=== PATIENT | male | born 1980 | race Two or more races ===

== ENCOUNTER 2024-05-10 10:10 | Day surgery (SDC) | payer BC, SELFPAY ==
[2024-05-10] VITALS (7 sets, daily range): BP systolic 150–170; BP diastolic 89–100; PULSE 65–77; RESP 15–20; TEMP 36.6–37.1; O2SAT 96–100; BMI 29.7
--- NOTE | 2024-05-10 10:58 | XR_ITS ---
Examination: CT abdomen with intravenous contrast CT pelvis with intravenous contrast 2-D coronal reconstructions 2-D sagittal reconstructions Date and time of exam:May 10, 2024 1220 hrs. Indications: Onset right lower abdominal pain today. CTDI: vol (mGy) 9.48 DLP: (mGycm) 573 Technique: Multiple axial sections of the abdomen and pelvis have been obtained. 64 slice high-resolution scanner used. 3 mm axial sections have been obtained, post intravenous injection 60 cc [id number] 2-D sagittal, coronal reconstructions obtained. Low dose protocols were performed. One or more of the following dose reduction techniques were used; automated exposure control, adjustment of the mA and/or KV according to patient size, use of iterative reconstruction technique. Findings: Small liver cysts Fatty infiltration throughout the liver Spleen not enlarged No pancreatic or adrenal mass No gallstones No hydronephrosis Fluid-filled inflamed appendix below the cecum No pelvic abscess Impression: Acute appendicitis Negative for pelvic abscess
--- NOTE | 2024-05-10 11:00 | PD.EDRME ---
Rapid Medical Screening Exam RME Arrival date/time: 05/10/24 10:10 44-year-old male presents emergency department complaints of right lower quadrant abdominal pain associated with nausea vomiting and fever x 1 day. I have greeted and performed a focused initial assessment of this patient. Initial appropriate labs ordered at this time. A comprehensive ED assessment and evaluation of the patient and analysis of all test and completion of medical decision making process will be conducted by additional ED provider. Chief Complaint: Abdominal Pain Time Seen by Provider: 05/10/24 10:55 Vital signs: Vital Signs Temperature 98.7 F 05/10/24 10:19 Pulse Rate 65 05/10/24 10:19 Respiratory Rate 18 05/10/24 10:19 Blood Pressure 153/92 H 05/10/24 10:19 Pulse Oximetry (%) 98 05/10/24 10:19 Oxygen Delivery Method Room Air 05/10/24 10:19
[2024-05-10 11:44] LABS: Collection Type, Urine Clean Catch; Squamous Epithelial Cell,Urine 0 /hpf (0-5); WBC,Urine 0 /hpf (0-5)
[2024-05-10 11:49] LABS: Basophils % (Auto) 0 % (0-2.5); Eosinophils % (Auto) 0 % (0-10); Hematocrit 46.4 % (41.0-53.0); Hemoglobin 15.4 g/dL (13.5-16.0); Immature Granulocytes % (Auto) 0 % (0-0); Immature Granulocytes Auto 0.05 Thou/mm3 (0.00-0.00); Lymphocytes % (Auto) 6 % (10-50); Mean Corpuscular HGB Conc 33.2 g/dl (31.0-37.0); Mean Corpuscular Hemoglobin 29.1 pg (25.0-35.0); Mean Corpuscular Volume 88 fL (80-100); Monocytes # (Auto) 0.7 Thou/mm3 (0.0-0.8); Monocytes % (Auto) 4 % (0-12); Neutrophils # (Auto) 16.1 Thou/mm3 (1.8-7.7); Neutrophils % (Auto) 90 % (37-80); Nucleated Red Blood Cell % 0 /100 WBC (0); Platelet Count 252 Thou/mm3 (140-440); RDW Standard Deviation 42.2 fL (35.1-43.9); White Blood Count 17.9 Thou/mm3 (3.8-10.6)
[2024-05-10 12:03] LABS: Amorphous Crystals,Urine Present (Absent); Bilirubin,Urine Negative (Negative); Blood,Urine 2+ (Negative); Clarity,Urine Turbid (Clear/Hazy); Color,Urine Yellow (Lt Yel-Yel); Glucose, Urine Negative (Negative); Ketones,Urine 1+ (Negative); Leukocyte Esterase,Urine Negative (Negative); Nitrite,Urine Negative (Negative); PH,Urine 7.5 (5.0-7.0); Protein,Urine 1+ (Neg - Trace); RBC,Urine 4 /hpf (0-3); Specific Gravity,Urine 1.029 (1.001-1.035); Urobilinogen,Urine Negative mg/dL (0.0-1.0)
[2024-05-10 12:05] LABS: Alanine Aminotransferase 60 U/L (10-49); Albumin/Globulin Ratio 1.7 (1.2-2.2); Alkaline Phosphatase 113 U/L (46-116); Anion Gap 8 (7-16); Aspartate Amino Transferase 32 U/L (0-34); BUN/Creatinine Ratio 9 Ratio (12-20); Bilirubin,Total 1.2 mg/dL (0.3-1.2); Blood Urea Nitrogen 12 mg/dL (9-23); Calcium 10.4 mg/dL (8.3-10.6); Calcium (Corrected) 10.4 mg/dL (8.5-10.1); Carbon Dioxide 26.5 mMol/L (20.0-31.0); Chloride 103 mMol/L (98-107); Creatinine (Component) 1.3 mg/dL (0.6-1.3); Estimated Creatinine Clearance 82.6 mL/min (>60); Globulin 2.9 gm/dL (2.3-3.5); Glucose 129 mg/dL (74-106); Lipase 38 U/L (12-53); Osmolality,Calculated 275 (275-295); Potassium 4.3 mMol/L (3.4-5.1); Sodium 137 mMol/L (136-145); Total Protein 7.9 gm/dL (5.7-8.2); eGFR > 60 See Note
[2024-05-10] MEDS: ONDANSETRON INJ 2 MG/ML INJ 2 ML 4 MG IV (13:10)
[2024-05-10] MEDS: MORPHINE SULF INJ 10 MG/ML VIAL 5 MG IVP (13:12)
--- NOTE | 2024-05-10 13:12 | PRELIM_ITS ---
CT scan of the abdomen and pelvis with intravenous contrast (axial sections with sagittal and coronal reformats) May 10, 2024 1222 hours Clinical History: Abd right lower quad. Comparison: No prior study is available for comparison. Findings: The appendix is thickened with appendicoliths, measuring 1 cm (coronal images 57/146) with mild wall enhancement and periappendiceal fat stranding. There is no free fluid or free air. No evidence of bowel obstruction. A moderate amount of fecal material is present in the colon. There is a small hypodensity in the liver too small to characterize.The gallbladder, spleen, pancreas, adrenals are unremarkable. There is a non obstructing calculus in the right kidney. There is a small hypodensity in the left kidney too small to characterize. The urinary bladder is normal. The osseous structures are unremarkable. The lung bases are clear. Impression: Acute appendicitis with appendicoliths without perforation or abscess. Other findings as described above. Discussion Details: Results verbally communicated to : Franny Murphy NP at 12:54 PM 05/10/2024 Report Electronically Signed By: Jamie Justice 05/10/2024 1:11:41 PM [EST]
[2024-05-10] MEDS: SODIUM CHLORIDE 0.9% 1000 ML 1,000 ML 999 ML IV (13:23)
[2024-05-10] MEDS: ceFAZolin/D5W 1 GM IVPB 1 GM/50 ML BAG IV (13:29)
--- NOTE | 2024-05-10 14:01 | ESHP_ITS ---
HPI Date of Admission 05/10/2024 Chief Complaint Chief Complaint: Right lower quadrant abdominal pain with nausea and vomiting HPI 44-year-old male without significant past medical history presented to the emergency department with acute onset of abdominal pain. His pain started 2:00 in the morning and woke him up. His pain has been in right lower quadrant. The pain was initially intermittent, then it became persistent and progressively worse. He has had nausea and vomiting, but denies fever, chills, diarrhea, constipation or dysuria. He denies having similar symptoms in the past with no recent history of trauma. Review of Systems Constitutional Constitutional: Denies chills and Denies fever(s) Cardiovascular Cardiovascular: Denies chest pain Respiratory Respiratory: Denies cough Gastrointestinal Gastrointestinal: Reports abdominal pain, Reports nausea and Reports vomiting Genitourinary Genitourinary: Denies difficulty urinating Hematologic/Lymphatic Hematologic/Lymphatic: Denies easy bleeding and Denies easy bruising Past Medical History Surgical History OTHER SURGICAL HX: Tonsillectomy Social History SMOKING STATUS: Never smoker SUBSTANCE USE: does not use ALCOHOL: Current Meds Home Medications and Allergies Allergies Allergy/AdvReac Type Severity Reaction Status Date / Time No Known Allergies Allergy Verified 05/10/24 10:13 Exam Vital Signs Temp Pulse Resp BP Pulse Ox O2 Del Method 98.7 F 65 18 153/92 H 98 Room Air 05/10/24 10:19 05/10/24 10:19 05/10/24 10:19 05/10/24 10:19 05/10/24 10:19 05/10/24 10:19 Constitutional Constitutional: no acute distress Routine Respiratory Exam Respiratory: Present CTA bilaterally Routine Cardiovascular Exam Cardiovascular: Present RRR Routine Abdominal Exam Abdominal: Present soft, normoactive bowel sounds and tenderness (Right lower qu adrant tenderness to palpation with guarding, no rebound tenderness or peritonitis at this time); Absent distended Results Results: Laboratory Laboratory results: results reviewed Results: Imaging Imaging narrative: CT scan of abdomen pelvis images reviewed, radiologist interpretation noted Assessment & Plan Problem List (1) Unspecified acute appendicitis: Qualifiers: Acute appendicitis type: unspecified acute appendicitis type Qualified Code(s): K35.80 - Unspecified acute appendicitis Status: Acute Plan Will take patient to the operating room for laparoscopic possible open appendectomy. Risks include but not limited to infection, bleeding, injury to bowel, bladder, surround neurovascular structures, abdominal sepsis and or abdominal abscess, need for further procedure and or operation discussed with the patient. Benefits and alternatives explained to him, all his questions answered, he agreed and consented to proceed with the operation. Quality Measures Quality Measures none
--- NOTE | 2024-05-10 14:26 | PD.EDABDPN ---
ED Abdominal Pain RME/HPI General Chief Complaint: Abdominal Pain Stated complaint: Abdominal, n/v/d, fever x since last pm Time seen by provider: 05/10/24 10:55 Arrival date/time: 05/10/24 10:10 A 44-year-old male with no significant past medical history presents with a one-day history of right lower quadrant abdominal pain. The pain is associated with nausea, vomiting, and subjective fever. The patient reports taking [id number] medication with mild relief of symptoms. Limitations: no limitations RME / HPI RME / HPI narrative: 05/10/24 10:10 44-year-old male presents emergency department complaints of right lower quadrant abdominal pain associated with nausea vomiting and fever x 1 day. I have greeted and performed a focused initial assessment of this patient. Initial appropriate labs ordered at this time. A comprehensive ED assessment and evaluation of the patient and analysis of all test and completion of medical decision making process will be conducted by additional ED provider. Related Data Allergies Allergy/AdvReac Type Severity Reaction Status Date / Time No Known Allergies Allergy Verified 05/10/24 10:13 Review of Systems Review of Systems Systems Reviewed: All systems reviewed, normal except as documented Narrative Review of Systems: Gen:+ fever, no chills, no weight loss EYES: No discharge, no visual changes, no pain HEENT: No ear pain, no congestion, no sore throat PULM: No shortness of breath, no cough, no congestion CV: No chest pain, no dyspnea on exertion, no palpitations GI: No nausea, no vomiting, no diarrhea, + pain, no constipation : No frequency, no urgency, no dysuria Musc/skel: No joint pain, no back pain Skin: No rash Psyc: No hallucinations, no depression Heme/Lymph: No easy bleeding or bruising tendencies Neuro: No weakness, no headache ED Exam Narrative Physical exam: 44-year-old male awake and alert appears to be in pain General Limitations: Present no limitations General appearance: Present alert Head Head exam: Present atraumatic Eye Eye exam: Present normal appearance, PERRL and EOMI ENT ENT exam: Present normal exam, normal oropharynx and mucous membranes moist Neck Neck exam: Present normal inspection, full ROM and trachea midline Chest Chest inspection: Present normal inspection and symmetric chest wall rise Respiratory Respiratory exam: Present normal lung sounds bilaterally Cardiovascular Cardiovascular exam: Present regular rate, normal rhythm and normal heart sounds Abdominal Exam Abdominal exam: Present soft, tenderness, guarding and normal bowel sounds; Absent distention, rebound or rigidity Abdominal tenderness: Present RLQ and moderate Extremities Exam Extremities exam: Present normal inspection and full ROM Back Exam Back exam: Present normal inspection and full ROM Neurological Exam Neurological exam: Present alert, oriented X3 and CN II-XII intact Psychiatric Psychiatric exam: Present normal affect and normal mood Skin Skin exam: Present warm, dry, intact and normal color Course Quality Measures none Orders Category Date Time Status Patient Condition Routine Admission 05/10/24 13:[address] in Surgical Day Care Routine Admission 05/10/24 13:53 Active Activity as Tolerated Routine Care 05/10/24 13:53 Ordered Bedside COVID-19 Antigen Test NOW Care 05/10/24 10:58 Active Bedside Influenza A&B Antigen Test NOW Care 05/10/24 10:[address] Screening NOW Care 05/10/24 10:58 Active Consent [Obtain Written Consent For:] .NOW Care 05/10/24 13:52 Active Insert IV NOW Care 05/10/24 12:58 Completed Intake and Output QSHIFT Care 05/10/24 14:00 Ordered NPO NOW Care 05/10/24 13:53 Active Notify provider NEEDED Care 05/10/24 13:52 Active Diet NPO (NOW) Diet 05/10/24 13:[address] abdomen pelvis w con Stat Exams 05/10/24 10:58 Taken CBC Stat Lab 05/10/24 11:28 Completed Comprehensive Metabolic Panel Stat Lab 05/10/24 11:28 Completed Lipase Stat Lab 05/10/24 11:28 Completed Urinalysis Stat Lab 05/10/24 11:01 Completed Acetaminophen Tab [Tylenol Tab] Med 05/10/24 13:52 Active 650 mg PO Q6H PRN Cefoxitin [Mefoxin] 2 gm Med 05/10/24 13:52 Discontinued SODIUM CHLORIDE 0.9% (Popper) [Ns 0.9% (P)] 50 ml IV X1 KCL 20 mEq/L in D5-1/2NS Med 05/10/24 14:00 Active 20 meq in 1,000 ml IV 125 mls/hr Morphine Inj Med 05/10/24 12:58 Discontinued 5 mg IVP X1 ONE Ondansetron Inj [Zofran Inj] Med 05/10/24 13:52 Active 4 mg IV Q6H PRN Ondansetron Inj [Zofran Inj] Med 05/10/24 12:58 Discontinued 4 mg IV X1 ONE Sodium Chloride 0.9% 1000 ml [Ns] 1,000 ml Med 05/10/24 12:58 Discontinued IV 999 mls/hr ceFAZolin/D5W 1 GM IVPB [Ancef Ivpb] Med 05/10/24 13:22 Discontinued 1 gm in 50 ml IV X1 Code Status Routine Oth 05/10/24 13:52 Ordered Vital Signs Vital signs: Vital Signs Temperature 98.7 F 05/10/24 10:19 Pulse Rate 65 05/10/24 10:19 Respiratory Rate 18 05/10/24 10:19 Blood Pressure 153/92 H 05/10/24 10:19 Pulse Oximetry (%) 98 05/10/24 10:19 Oxygen Delivery Method Room Air 05/10/24 10:19 Abdominal Pain MDM MDM Narrative MDM Narrative:: CT abdomen/pelvis is positive for acute, non-perforated appendicitis. The on-call general surgeon, Dr. Castellanos, will be contacted for admission and surgical evaluation. The patient will be started on IV fluids, pain management, and preoperative antibiotics in preparation for surgery. Patient data External records reviewed:: [facility] previous records Clinical information provided by:: patient Social determinants that could affect healthcare access:: none Patient has the following chronic illnesses:: None How is presenting disease/condition affected by chronic disease/condition?: no chronic disease Evaluation data The following diagnostics were reviewed and interpreted by me:: lab results and radiology exam(s) Lab and/or radiology exams considered but not ordered:: Yes Interpretation Summary: Acute appendicitis on CT Ordering Physician: Date of Service: Procedure(s): Accession Number(s): cc: ~ CT scan of the abdomen and pelvis with intravenous contrast (axial sections with sagittal and coronal reformats) May 10, 2024 1222 hours Clinical History: Abd right lower quad. Comparison: No prior study is available for comparison. Findings: The appendix is thickened with appendicoliths, measuring 1 cm (coronal images 57/146) with mild wall enhancement and periappendiceal fat stranding. There is no free fluid or free air. No evidence of bowel obstruction. A moderate amount of fecal material is present in the colon. There is a small hypodensity in the liver too small to characterize.The gallbladder, spleen, pancreas, adrenals are unremarkable. There is a non obstructing calculus in the right kidney. There is a small hypodensity in the left kidney too small to characterize. The urinary bladder is normal. The osseous structures are unremarkable. The lung bases are clear. Impression: Acute appendicitis with appendicoliths without perforation or abscess. Other findings as described above. Discussion Details: Results verbally communicated to : Franny Murphy REHABILITATION WORKER at 12:54 PM 05/10/2024 Report Electronically Signed By: Jamie Justice 05/10/2024 1:11:41 PM [EST] Medications / Prescriptions Medications or Prescriptions considered but not ordered:: no Medication administrations:: Medication Administration History Acetaminophen (Acetaminophen 325 Mg Tablet) 650 mg PO Q6H PRN PRN Reason: Fever >101.5 Stop: 06/09/24 13:51 Potassium Chloride/Dextrose/Sod Cl (Kcl 20 Meq/L In D5-1/2ns) 20 meq in 1,000 mls @ 125 mls/hr IV .Q8H DEMARCO Stop: 06/09/24 13:59 Ondansetron HCl (Ondansetron Inj 2 Mg/Ml Inj 2 Ml) 4 mg IV Q6H PRN PRN Reason: NAUSEA OR VOMITING Stop: 06/09/24 13:51 Discontinued Medications Sodium Chloride (Ns) 1,000 mls @ 999 mls/hr IV .Q1H1M ONE Stop: 05/10/24 13:58 Last Admin: 05/10/24 13:23 Dose: 999 mls/hr Documented By: PRIYA Cefazolin Sodium/Dextrose (Ancef Ivpb) 1 gm in 50 mls @ 100 mls/hr IV X1 ONE Stop: 05/10/24 13:51 Last Infusion: 05/10/24 13:56 Dose: Infused Documented By: Admin: 05/10/24 13:29 Dose: 100 mls/hr Documented By: PRIYA Cefoxitin Sodium 2 gm/ Sodium (Chloride) 50 mls @ 100 mls/hr IV X1 ONE Stop: 05/10/24 14:21 Morphine Sulfate (Morphine Sulf Inj 10 Mg/Ml Vial) 5 mg IVP X1 ONE Stop: 05/10/24 12:59 Last Admin: 05/10/24 13:12 Dose: 5 mg Documented By: PRIYA Ondansetron HCl (Ondansetron Inj 2 Mg/Ml Inj 2 Ml) 4 mg IV X1 ONE; Protocol Stop: 05/10/24 12:59 Last Admin: 05/10/24 13:10 Dose: 4 mg Documented By: PRIYA All medications administered and effective Consultations Consultation(s) initiated? (list below): Yes Consultation #1 (Physician, Specialty, Details): Dr. Castellanos's general surgeon Diagnosis Differential diagnosis abdominal pain: abdominal pain, acute appendicitis, calculus of kidney, constipation, gastroenteritis, pancreatitis and small bowel obstruction Most likely diagnosis given after review of the tests above:: Acute appendicitis Admission Indicated Admission indicated?: indicated Admission Request Was there a request for admission?: Yes Admission Attestation Admission request attestation: Discussed case with [] from Hospitalist service regarding admission. Discussed patients ED course, exam findings, labs, and radiology results. The Hospitalist [agrees,declines] to accept the patient for admission. 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 Stafnord
[2024-05-10] MEDS: CEFOXITIN 2 GM in SODIUM CHLORIDE 0.9% (Popper) 50 ML IV (14:36)
--- NOTE | 2024-05-10 15:02 | ESOP_ITS ---
Date of Procedure 05/10/24 Pre Op Diagnosis Acute appendicitis Post Op Diagnosis Acute appendicitis Procedure Laparoscopic appendectomy Findings Inflamed, dilated and hyperemic appendix without perforation Procedure Description Patient was brought into the operating room in supine position. After administration of general endotracheal anesthesia, abdomen was prepped and draped in standard surgical manner. A Veress needle was inserted through the umbilicus and pneumoperitoneum was obtained up to 15 mmHg. The Veress needle was removed and a 5 mm umbilical incision was made. A 5 mm trocar was placed and laparoscopic camera was inserted. Under direct visualization a laparoscopic camera a 5 mm trocar placed in suprapubic region and a 10 mm trocar placed in left lower quadrant. The abdomen was inspected, the cecum was identified and followed until the appendix was identified. The appendix was noted to be inflamed, dilated and hyperemic without perforation. A window was created between the appendix and mesoappendix and the appendix was divided near the appendix and cecal junction with blue Endo LARRY stapling device. The mes oappendix was divided with cuello Endo LARRY stapling device. The appendix was placed inside an Endo Catch and removed from the abdomen utilizing left lower quadrant trocar site. Abdomen and pelvis copiously and thoroughly washed and irrigated, all the fluids were suctioned and the suctioned fluid returned clear. Hemostasis was adequate and satisfactory, staple lines were intact without bleeding or any leakage. Left lower quadrant trocar sites fascial defect was closed with 0 Vicryl using Endo closure device. Instruments and trocars removed, pneumoperitoneum was evacuated and the incisions closed with 4-0 Monocryl subcuticular fashion. Instruments, needles and sponge counts were reported to be correct ??2. Patient tolerated the procedure well, was extubated, breathing spontaneously and without difficulty and was transferred to postanesthesia care in stable condition. Anesthesia GETA and local Pathology / specimen Other (Appendix) Estimated Blood Loss 10 Condition Stable Disposition PACU Surgeon Marciano Castellanos MD Surgical Staff Operation Date: 05/10/24 15:15 <No data on this case meets the specified criteria>
--- NOTE | 2024-05-10 16:01 | SUR.PHASEI ---
1601 Patient arrived to recovery resting comfortably in [facility], on oxygen 6L via oxy mask, breathing unlabored, vital signs stable, dressing intact to lower abdomen; dermabond, no bleeding noted, lung sounds clear upon auscultation, bilateral radial pulses present when palpated, report received by Stephen VERDUGO and Dr. Franklin
--- NOTE | 2024-05-10 16:59 | SUR.PHASEII ---
1656 Patient meets discharge criteria from recovery, awake and alert, breathing unlabored, vital signs stable, denies pain, dressing intact; no bleeding noted, patient assisted with dressing into his clothing by his , patient drinking water; denies nausea, discharge instructions given to patient and patients with teach-back approach, both receptive on instructions, patient signed discharge instructions. Patient given all his belongings prior to discharge, transported via wheelchair and left in a private vehicle.
== END 2024-05-10 16:56 | disposition home or self-care (01) ==
LOC: SERX 11:09 → S2EX 14:10
PROVIDERS: Nurse Practitioner Primary Care; Emergency Provider Emergency Medicine; PCP Physician Assistant; Referring Provider Surgery; Visit Provider Surgery
PROC: 0DTJ4ZZ Resection of Appendix, Percutaneous Endoscopic Approach (ICD-10-PCS; CPT 44970; principal; 2024-05-10 15:00)
DX: K35.30 Acute appendicitis with localized peritonitis, without perforation or gangrene (principal)
CPT/HCPCS: 44970; 36415; 74177; 80053; 81001; 83690; 85025; 87400; 87811; 96365; 96375; 99285; A4217; A4649; J0689; J0694; J1100; J1885; J2250; J2270; J2405; J2704; J3010; J3490; J7030; J7050; Q9967